=== PATIENT | female | born 2005 | race African-American/Black ===

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

== ENCOUNTER 2024-01-25 20:00 | Emergency (ER) | payer BC ==
[2024-01-25 20:28] LABS: Bacteria/HPF 4+ HPF (None Seen); Bilirubin Negative (Negative); Blood, Urine Trace (Negative); CAUTI Indications for Culture Dysuria,urgency,freq; Clarity Turbid (Clear); Glucose, Urine (Dipstick) Normal (Negative); Ketone, Urine Negative (Negative); Leukocyte 500 Leu/uL (Negative); Nitrite Negative (Negative); Protein, Urine (Dipstick) 20 mg/dL (Neg-Trace); WBC/HPF Greater than 50 HPF (0-3); pH, Urine 5.5 (5.0-9.0)
[2024-01-25 20:30] LABS: Urine Culture Reflex Yes Yes
[2024-01-25 20:49] LABS: #Eosinphils 0.1 thou/uL (0.0-0.7); #Monocytes 0.7 thou/uL (0.11-0.59); #Neutrophils 4.3 thou/uL (1.40-6.50); %Basophils 0.3 % (0.0-1.0); %Eosinophils 0.9 % (0.0-10.0); %Lymphocytes 20.8 % (28.0-48.0); %Monocytes 10.5 % (0.0-4.0); %Neutrophils 66.7 % (31.0-61.0); Hematocrit 35.2 % (36.0-47.0); Mean Corpuscular HGB CONC 31.3 g/dL (32.0-36.0); Mean Corpuscular Hemoglobin 24.8 pg (25.0-35.0); Mean Corpuscular Volume 79.3 fl (78.0-98.0); Mean Platelet Volume 12.8 fL (7.4-10.4); Platelet Count 273 10x3/uL (130-400); RBC Distribution Width 14.6 % (11.5-14.5); Red Blood Cell (RBC) Count 4.44 mill/uL (4.00-5.20); White Blood Cell (WBC) Count 6.4 10x3/uL (4.8-10.8)
[2024-01-25] MEDS ORDERED: Ibuprofen 800 MG TAB ONE (20:52)
[2024-01-25] MEDS ORDERED: Ondansetron ODT 4 MG TAB ONE (20:52)
[2024-01-25] MEDS ORDERED: Dicyclomine 20 MG TAB ONE (20:52)
[2024-01-25 20:59] LABS: BHCG - Serum Negative (NEGATIVE); Pregs Control Background? CLEAR/WHITE (CLR/WHITE); Pregs Control Bar Appear? YES (CONTROL BAR)
[2024-01-25 21:16] LABS: ALT (SGPT) 85 U/L (8-55); AST (SGOT) 54 U/L (5-30); Albumin 4.1 g/dL (3.5-5.0); Alkaline Phosphatase 152 U/L (40-100); Anion Gap 12 mmol/L (10-20); BUN (Urea Nitrogen) 12 mg/dL (8.4-21.0); Bilirubin, Total 0.5 mg/dL (0.2-1.2); Calc. Creatinine Clearance 0 mL/min (70-130); Calcium 9.2 mg/dL (7.8-10.44); Carbon Dioxide 23 mmol/L (22-29); Chloride 105 mmol/L (98-107); Estimated GFR 118; Glucose 99 mg/dL (70-105); Potassium 3.6 mmol/L (3.5-5.1); Protein, Total 8.1 g/dL (6.0-8.3); Sodium 136 mmol/L (136-145)
== END 2024-01-25 21:36 | disposition home or self-care (01) ==
LOC: ERS 20:00
DX: N39.0 Urinary tract infection, site not specified (principal)
CPT/HCPCS: 36415; 80053; 81001; 84703; 85025; 87086; 99284; Q0162